=== PATIENT | male | born 2005 | race Caucasian/White ===

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

== ENCOUNTER 2024-01-30 04:10 | Emergency (ER) | payer OTHER ==
[~2024-01-30] VITALS: Ht 172.7 cm; Wt 72.6 kg
[2024-01-30 04:23] VITALS: PULSE 76; RESP 16; TEMP 97.5; O2SAT 98
[2024-01-30 04:48] VITALS: PULSE 76; RESP 16; TEMP 97.5
[2024-01-30] MEDS: NACL 0.9% 1,000 ML IV ONE (05:13)
[2024-01-30 05:14] VITALS: O2SAT 98
[2024-01-30 05:43] LABS: HEMOGLOBIN 15.2 g/dL (12.0-18.0)
[2024-01-30 05:59] LABS: ANION GAP 10.7 (8-16); CREATININE 0.9 mg/dL (0.6-1.3); POTASSIUM 3.7 mmol/L (3.5-5.1)
[2024-01-30 06:06] LABS: BASOPHILS % (AUTO) 0.2 % (0.0-2.0); EOSINOPHILS # (AUTO) 0.2 K/uL (0-0.4); EOSINOPHILS % (AUTO) 2.3 % (0.0-4.0); HEMATOCRIT 44.4 % (36-52); LYMPHOCYTES # (AUTO) 2.6 K/uL (2.0-11.5); LYMPHOCYTES % (AUTO) 34.7 % (20.5-51.1); MEAN CORPUSCULAR HEMOGLOBIN 30 pg (27-31); MEAN CORPUSCULAR HGB CONC 34 g/dL (33-37); MEAN CORPUSCULAR VOLUME 88.3 fL (80-94); MONOCYTES # (AUTO) 0.5 K/uL (0.8-1.0); MONOCYTES % (AUTO) 6.7 % (1.7-9.3); NEUTROPHILS # (AUTO) 4.3 K/uL (1.8-7.7); NEUTROPHILS % (AUTO) 56.1 % (42.2-75.2); PLATELET COUNT (AUTO) 232 K/uL (140-450); RED BLOOD CELL COUNT(AUTO) 5.03 MIL/uL (4.20-6.10); RED CELL DISTRIBUTION WIDTH 13.1 % (11.6-13.7); WHITE BLOOD COUNT (AUTO) 7.6 K/uL (4.8-10.8)
== END 2024-01-30 06:34 | disposition home or self-care (01) ==
LOC: MED 04:10
DX: E86.0 Dehydration (principal)
CPT/HCPCS: 36415; 80048; 85025; 96360; 99283; J7030